=== PATIENT | female | born 1955 | race Caucasian/White ===

== ENCOUNTER 2016-12-17 20:17 | Emergency (ER) | payer MEDICARE ==
[~2016-12-17 20:17] MED LIST: COLACE100 MG PO; DESYREL50 MG PO; DICLOFENAC SODI75 MG PO; DICYCLOMINE HCL10 MG PO; FLAGYL500 MG PO; GLUCOPHAGE500 MG PO; HYDROXYZINE PAM50 MG PO; MECLIZINE HCL25 MG PO; METOPROLOL TART50 MG PO; NASAL SPRAY30 M1; NICODERM 14MG PA1 EA TD; OMEPRAZOLE40 MG PO; PEPCID20 MG PO; PERCOCET 10-321 EACH PO; PHENERGAN25 M1 PO; SIMETHICONE80 MG PO; TYLENOL325 M1 PO; VALIUM5 MG PO; ZESTRIL10 MG PO; ZOLOFT50 MG PO
[2016-12-17 20:57] LABS: URINE BILIRUBIN NEGATIVE (NEGATIVE); URINE BLOOD NEGATIVE (NEGATIVE); URINE GLUCOSE (UA) NORMAL (NORMAL); URINE KETONE NEGATIVE (NEGATIVE); URINE LEUKOCYTE ESTERASE TRACE (NEGATIVE); URINE NITRATE NEGATIVE (NEGATIVE); URINE PROTEIN NEGATIVE (NEGATIVE); UROBILINOGEN NORMAL mg/dL (<1.0)
[2016-12-17 21:07] LABS: BASO % 0.2 % (0.1-1.2); EOS # 0.2 10_X3_uL (0.0-0.4); EOS % 1.2 % (0.7-5.8); GRAN % 72.2 % (34.0-71.1); HEMATOCRIT 46.4 % (34-45); HEMOGLOBIN 15.2 g/dL (11.2-15.7); LYMPH # 2.2 10_X3_uL (1.2-3.7); MEAN CORPUSCULAR HEMOGLOBIN 27.3 pg (27.0-33.0); MEAN CORPUSCULAR HGB CONC 32.8 g/dL (32.0-36.0); MEAN CORPUSCULAR VOLUME 83.3 fL (79-95); MEAN PLATELET VOLUME 11.4 fl (7.5-11.5); MONO # 1.4 10_X3_uL (0.2-0.9); MONO % 10.4 % (4.7-12.5); PLATELET COUNT 258 x10_3/uL (182-369); RED BLOOD COUNT 5.57 x10_6/uL (3.9-5.2); RED CELL DISTRIBUTION WIDTH 14.7 % (11.7-14.4); WHITE BLOOD COUNT 13.8 x10_3/uL (4.0-10.0)
[2016-12-17 21:07] LABS: URINE WBC 0-5 /[HPF] (0-5)
[2016-12-17 21:24] LABS: ALBUMIN 4.2 gm/dL (3.4-5.0); ALKALINE PHOSPHATASE 82 U/L (50-136); ALT/SGPT 13 U/L (3.5-33.9); AST/SGOT 13 U/L (7.04-26.96); BILIRUBIN,TOTAL 0.18 mg/dL (0.0-1.0); BLOOD UREA NITROGEN 14 mg/dL (7-18); CARBON DIOXIDE 28 mmol/L (21-32); CREATININE 0.8 mg/dL (0.6-1.3); GLUCOSE,RANDOM 120 mg/dL (70-99); POTASSIUM 4.2 mmol/L (3.5-5.1); SODIUM 143 mmol/L (136-145); TOTAL PROTEIN 7.2 gm/dL (6.4-8.2)
== END 2016-12-17 21:37 | disposition home or self-care (01) ==
LOC: ER 20:17
PROVIDERS: General Practice
DX: R10.32 Left lower quadrant pain (principal); R11.0 Nausea; E66.9 Obesity, unspecified; I10 Essential (primary) hypertension; F41.9 Anxiety disorder, unspecified; F17.210 Nicotine dependence, cigarettes, uncomplicated; Z87.19 Personal history of other diseases of the digestive system; Z79.899 Other long term (current) drug therapy; Z79.891 Long term (current) use of opiate analgesic; Z88.0 Allergy status to penicillin
CPT/HCPCS: 36415; 80053; 81001; 85025; 96372; 99283; 99283-25; J1170

== ENCOUNTER 2017-03-25 16:02 | Emergency (ER) | payer MEDICARE | END 2017-03-25 19:17 | disposition other institution (70) | LOC: ER 16:02 | DX: K57.32 Diverticulitis of large intestine without perforation or abscess without bleeding (principal); R10.32 Left lower quadrant pain; R11.2 Nausea with vomiting, unspecified; R19.7 Diarrhea, unspecified; E66.9 Obesity, unspecified; Z88.0 Allergy status to penicillin | CPT/HCPCS: 99284; 99285-25 ==

== ENCOUNTER 2017-03-25 16:02 | Inpatient (IN) | payer MEDICARE ==
[~2017-03-25] VITALS: Ht 165.1 cm; Wt 97.6 kg
[2017-03-25 16:32] LABS: BASO % 0.2 % (0.1-1.2); EOS # 0.1 10_X3_uL (0.0-0.4); EOS % 1.3 % (0.7-5.8); GRAN # 7.6 10_X3_uL (1.6-6.1); GRAN % 75.6 % (34.0-71.1); HEMOGLOBIN 14.4 g/dL (11.2-15.7); LYMPH # 1.8 10_X3_uL (1.2-3.7); LYMPH % 17.7 % (19.3-51.7); MEAN CORPUSCULAR HEMOGLOBIN 27.4 pg (27.0-33.0); MEAN CORPUSCULAR HGB CONC 32.7 g/dL (32.0-36.0); MEAN CORPUSCULAR VOLUME 83.7 fL (79-95); MONO # 0.5 10_X3_uL (0.2-0.9); MONO % 5.2 % (4.7-12.5); PLATELET COUNT 227 x10_3/uL (182-369); RED BLOOD COUNT 5.26 x10_6/uL (3.9-5.2); RED CELL DISTRIBUTION WIDTH 14.6 % (11.7-14.4)
[2017-03-25 16:36] LABS: URINE BILIRUBIN NEGATIVE (NEGATIVE); URINE BLOOD NEGATIVE (NEGATIVE); URINE GLUCOSE (UA) NORMAL (NORMAL); URINE KETONE NEGATIVE (NEGATIVE); URINE LEUKOCYTE ESTERASE TRACE (NEGATIVE); URINE NITRATE NEGATIVE (NEGATIVE); URINE PROTEIN NEGATIVE (NEGATIVE); UROBILINOGEN NORMAL mg/dL (<1.0)
[2017-03-25 16:48] LABS: URINE SQUAMOUS EPITHELIAL CELL 0-10 /[HPF] (NONE SEEN); URINE WBC 0-5 /[HPF] (0-5)
[2017-03-25 16:49] LABS: URINE YEAST FEW (NONE SEEN)
[2017-03-25 16:50] LABS: ALBUMIN 4.1 gm/dL (3.4-5.0); ALKALINE PHOSPHATASE 69 U/L (50-136); ALT/SGPT 13 U/L (3.5-33.9); AST/SGOT 12 U/L (7.04-26.96); BILIRUBIN,TOTAL 0.18 mg/dL (0.0-1.0); BLOOD UREA NITROGEN 15 mg/dL (7-18); CALCIUM 8.5 mg/dL (8.7-10.7); CARBON DIOXIDE 28 mmol/L (21-32); CREATININE 0.7 mg/dL (0.6-1.3); GLUCOSE,RANDOM 151 mg/dL (70-99); LIPASE 32 U/L (6.75-60.75); POTASSIUM 3.7 mmol/L (3.5-5.1); SODIUM 140 mmol/L (136-145); TOTAL PROTEIN 6.8 gm/dL (6.4-8.2)
[2017-03-27 06:31] LABS: HEMATOCRIT 40.9 % (34-45); HEMOGLOBIN 12.9 g/dL (11.2-15.7); MEAN CORPUSCULAR HGB CONC 31.5 g/dL (32.0-36.0); MEAN CORPUSCULAR VOLUME 85.7 fL (79-95); MEAN PLATELET VOLUME 11.3 fl (7.5-11.5); RED BLOOD COUNT 4.77 x10_6/uL (3.9-5.2); RED CELL DISTRIBUTION WIDTH 14.2 % (11.7-14.4); WHITE BLOOD COUNT 5.7 x10_3/uL (4.0-10.0)
[2017-03-27 06:34] LABS: ALBUMIN 3.7 gm/dL (3.4-5.0); ALKALINE PHOSPHATASE 52 U/L (50-136); ALT/SGPT 10 U/L (3.5-33.9); AST/SGOT 10 U/L (7.04-26.96); BILIRUBIN,TOTAL 0.26 mg/dL (0.0-1.0); BLOOD UREA NITROGEN 9 mg/dL (7-18); CALCIUM 8.1 mg/dL (8.7-10.7); CARBON DIOXIDE 31 mmol/L (21-32); CREATININE 0.7 mg/dL (0.6-1.3); GLUCOSE,RANDOM 96 mg/dL (70-99); POTASSIUM 4.2 mmol/L (3.5-5.1); SODIUM 141 mmol/L (136-145); TOTAL PROTEIN 6.1 gm/dL (6.4-8.2)
[2017-03-28 06:57] LABS: HEMATOCRIT 41.7 % (34-45); HEMOGLOBIN 13.5 g/dL (11.2-15.7); MEAN CORPUSCULAR HEMOGLOBIN 27.2 pg (27.0-33.0); MEAN CORPUSCULAR HGB CONC 32.4 g/dL (32.0-36.0); MEAN CORPUSCULAR VOLUME 83.9 fL (79-95); MEAN PLATELET VOLUME 11.1 fl (7.5-11.5); RED BLOOD COUNT 4.97 x10_6/uL (3.9-5.2); RED CELL DISTRIBUTION WIDTH 14.2 % (11.7-14.4); WHITE BLOOD COUNT 6.3 x10_3/uL (4.0-10.0)
[2017-03-28 07:07] LABS: BLOOD UREA NITROGEN 9 mg/dL (7-18); CALCIUM 8.4 mg/dL (8.7-10.7); CARBON DIOXIDE 29 mmol/L (21-32); CREATININE 0.6 mg/dL (0.6-1.3); GLUCOSE,RANDOM 99 mg/dL (70-99); POTASSIUM 3.8 mmol/L (3.5-5.1); SODIUM 142 mmol/L (136-145)
[2017-03-29 07:05] LABS: HEMATOCRIT 41.9 % (34-45); HEMOGLOBIN 13.4 g/dL (11.2-15.7); MEAN CORPUSCULAR HEMOGLOBIN 26.4 pg (27.0-33.0); MEAN CORPUSCULAR VOLUME 82.5 fL (79-95); MEAN PLATELET VOLUME 11.3 fl (7.5-11.5); RED BLOOD COUNT 5.08 x10_6/uL (3.9-5.2); RED CELL DISTRIBUTION WIDTH 14.3 % (11.7-14.4)
[2017-03-29 07:19] LABS: ALBUMIN 3.7 gm/dL (3.4-5.0); ALKALINE PHOSPHATASE 61 U/L (50-136); ALT/SGPT 10 U/L (3.5-33.9); AST/SGOT 11 U/L (7.04-26.96); BLOOD UREA NITROGEN 10 mg/dL (7-18); CALCIUM 8.7 mg/dL (8.7-10.7); CARBON DIOXIDE 27 mmol/L (21-32); CREATININE 0.6 mg/dL (0.6-1.3); GLUCOSE,RANDOM 107 mg/dL (70-99); POTASSIUM 3.9 mmol/L (3.5-5.1); SODIUM 142 mmol/L (136-145); TOTAL PROTEIN 6.2 gm/dL (6.4-8.2)
[2017-03-29 07:25] LABS: BILIRUBIN,TOTAL < 0.15 mg/dL (0.0-1.0)
[2017-03-30 07:16] LABS: HEMATOCRIT 40.2 % (34-45); HEMOGLOBIN 13.7 g/dL (11.2-15.7); MEAN CORPUSCULAR HEMOGLOBIN 26.9 pg (27.0-33.0); MEAN CORPUSCULAR HGB CONC 34.1 g/dL (32.0-36.0); MEAN CORPUSCULAR VOLUME 78.8 fL (79-95); MEAN PLATELET VOLUME 10.8 fl (7.5-11.5); RED BLOOD COUNT 5.1 x10_6/uL (3.9-5.2); RED CELL DISTRIBUTION WIDTH 14.4 % (11.7-14.4); WHITE BLOOD COUNT 6.1 x10_3/uL (4.0-10.0)
[2017-03-30 07:29] LABS: ALBUMIN 3.6 gm/dL (3.4-5.0); ALKALINE PHOSPHATASE 52 U/L (50-136); ALT/SGPT 11 U/L (3.5-33.9); AMYLASE 31 U/L (15.62-74.58); AST/SGOT 12 U/L (7.04-26.96); BILIRUBIN,TOTAL 0.17 mg/dL (0.0-1.0); BLOOD UREA NITROGEN 11 mg/dL (7-18); CALCIUM 8.6 mg/dL (8.7-10.7); CARBON DIOXIDE 31 mmol/L (21-32); CREATININE 0.6 mg/dL (0.6-1.3); GLUCOSE,RANDOM 98 mg/dL (70-99); LIPASE 21 U/L (6.75-60.75); SODIUM 143 mmol/L (136-145); TOTAL PROTEIN 6.2 gm/dL (6.4-8.2)
== END 2017-03-30 13:20 | disposition home or self-care (01) | DRG 392 ==
LOC: ER 16:02 → MS 19:17
PROVIDERS: General Practice; ADMIT Family Medicine
DX: K52.9 Noninfective gastroenteritis and colitis, unspecified (principal); K57.32 Diverticulitis of large intestine without perforation or abscess without bleeding; I10 Essential (primary) hypertension; J44.9 Chronic obstructive pulmonary disease, unspecified; I50.9 Heart failure, unspecified; Z90.49 Acquired absence of other specified parts of digestive tract; F17.210 Nicotine dependence, cigarettes, uncomplicated; Z98.51 Tubal ligation status; Z88.0 Allergy status to penicillin; Z79.899 Other long term (current) drug therapy; Z79.1 Long term (current) use of non-steroidal anti-inflammatories (NSAID); Z99.81 Dependence on supplemental oxygen; R51 Headache; R12 Heartburn
CPT/HCPCS: 36415; 70486; 80048; 80053; 81001; 82150; 83605; 83690; 85025; 87040; 87324; 93306; 96361; 96365; 96375; 99070; 99284; 99285-25; J1170; J7040; Q0169; Q9967